=== PATIENT | female | born 1990 | race Caucasian/White ===

== ENCOUNTER 2019-02-11 17:25 | Emergency (ER) | payer OTHER, SELFPAY ==
[2019-02-11 17:26] VITALS: BP 138/108; PULSE 106; RESP 16; TEMP 37.2; O2SAT 99; BMI 27.8
[2019-02-11 17:32] VITALS: BP 137/79
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
[2019-02-11 18:00] VITALS: BP 127/99; PULSE 98; RESP 18; O2SAT 99
== END 2019-02-11 18:01 | disposition home or self-care (01) ==
LOC: ED 17:57
PROVIDERS: Emergency Provider Emergency Medicine
DX: Z04.1 Encounter for examination and observation following transport accident (principal); Z87.891 Personal history of nicotine dependence
CPT/HCPCS: 99284